=== PATIENT | female | born 1990 | race Caucasian/White ===

== ENCOUNTER 2025-04-29 19:03 | Emergency (ER) | payer OTHER, SELFPAY ==
--- OUTSIDE RECORDS SUMMARY | 2024-10-05 06:00 | XMS_ITS ---
Author Organization Paul Address [address] [place] [id number] Care Team Providers Care Supervisor Tan Room Name Role Phone Lacho White Primary Care Provider Allergies Allergen (clinical drug ingredient) Drug/Non Drug Allergy documented on EMR Reaction Allergy Type Onset Date Status cefaclor Cefaclor Unknown Drug Allergy Active cefprozil Cefprozil Unknown Drug Allergy Active REASON FOR VISIT yearly check up Medications Medication SIG (Take, Route, Frequency, Duration) Notes Start Date End Date Status Zoloft 100 MG 2 tablets Orally Onc e a day; Duration: 90 days Active Problems Problem Type SNOMED Code ICD Code Onset Dates Problem Status W/U Status Risk Notes Problem Posttraumatic stress disorder (65967963) PTSD (post-traum atic stress disorder) (F43.10) Active confirmed Vital Signs Blood pressure systolic 114 mm Hg 10/06/19 25 Blood pressure diastolic 62 mm Hg 025 Heart Rate 75 /min 10/05/2024 Height 62 in 10/05/2024 Weight 166 lbs 10/05/2024 BMI 30.36 kg/m2 10/05/2024 Encounters Encounter Location Date Provider Diagnosis [facility] [address] [facility] [phone] 10/05/2024 Lacho White PTSD (post-traumatic stress disorder) F43.10 Assessments Encounter Date Diagnosis (ICD Code) Assessment Notes Treatment Notes Treatment Clinical Notes Section Notes 10/05/2024 PTSD (post-traumatic stress disorder) (ICD-10 - F43.10) Plan Of Treatment Medication Medication Name Sig Start Date Stop Date Notes Zoloft 100 MG 2 tablets Orally Onc e a day; Duration: 90 days Next Appt Details Follow Up: 4 Weeks, Reason: Progress Notes * Delia EDWARDSDOB: [birth year] (35 yo F)Acc No.[id number]:10/05/2024 Progress Notes Patient: Delia STORY Provider: Alis White M.D. :1990 A ge:34 Y S ex:Female Date:10/05/2024 Address:[facility] Sch[id number] Subjective: * Chief Complaints: * 1 . Yearly check up. * HPI: P sychology: 34 year old female presents with c/o Anxiety P t here to f/u on anxiety with depression. Pt states she is currently taking Zoloft 100mg that is rx'd by Shy Hodge, MSN, CNM at [facility] in [place]. Pt states she feels like she may need a dose increase or a different meddication as she does not feel current is helping. Pt states she is taking it for PTSD and has continued with anxiety attacks. * ROS: D ERMATOLOGY: no R renetta. n o H tiffani. G ASTROENTEROLOGY: no N ausea. n o V omiting. U ROLOGY: no D ifficulty urinating. n o B lood in urine. * Medical History: P ostpartum Depression, Autism. * Surgical History: T onsillectomy 2002, ACL repair , Cadaver Graft 2011, Ear Tubes 1994,1996. * Hospitalization/Major Diagno stic Procedure: D enies Past Hospitalization. * Family History: F ather: alive, diabetes, hypertension. M other: alive, diabetes. P aternal Grand Father: , hypertension, skin cancer, dementia. P aternal Grand Mother: alive 82 yrs, diabetes, breast cancer. M aternal Grand Father: , hypertension, arthritis. M aternal Grand Mother: , type 2 diabetes. 2 brother(s) . 1 son(s) , 1 daughter(s) - healthy. . Uncle on father side passed fomr genetic cancer Brother diabetes type 2. * Social History: C affeine: yes, frequency: diet soda only a couple times a week. Alcohol: no. Past smoking status: never smoked. Tobacco use other than smoking: no. * Medications: T aking Zoloft 100 MG Tablet 1 tablet Orally Once a day , Discontinued Zoloft 50 MG Tablet 1 tab(s) orally once a day at night , Medication List reviewed and reconciled with the patient * Allergies: C efprozil, Cefaclor. Objective: * Vitals: W t: 166, Temp: 98.2, BP: 114/62, HR: 75, Nurse: curt, Ht: 62, BMI:30.36. * Examination: P sychology: General Appearance: N AD. G rooming : a dequate.?Eye contact : richa hernández. M ood : fallon barragan. Assessment: * Assessment: 1. P TSD (post-traumatic stress disorder) - F43.10 (Primary) Plan: * Treatment: * Procedure Codes: 3 074F SYST BP LT 130 MM HG, 3078F DIAST BP < 80 MM HG * Follow Up: 4 Weeks * Images: Billing Information: * Visit Code: 98450 Office Visit, Est Pt., Level 3. * Procedure Codes: 3074F SYST BP LT 130 MM HG. 3078F DIAST BP < 80 MM HG. * Electronic signature of Karla White MD on 04/29/2025 at 07:48 PM EDT Sign off status: Pending * Provider: Alis White M.D. Date: 0 10/05/2024 Generated for Archana delacruz/Sharif/Cynthiasmitting on: 1 07:48 PM EDT History and Physical Notes * HPI (History of Present Illness) Category Sub-Category Detail Notes Category Not es Psychology Anxiety Pt here to f/u o n anxiety with depression. Pt states she is currently taking Zoloft 100mg that is rx'd by Shy Hodeg, MSN, CNM at [facility] in [place]. Pt states she feels like she may need a dose increase or a different meddication as she does not feel current is helping. Pt states she is taking it for PTSD and has continued with anxiety attacks Examination Category Sub-Category Detail Notes Category Not es Psychology General Appearance: NAD Grooming : adequate Eye contact : normal Mood : pleasant
--- OUTSIDE RECORDS SUMMARY | 2024-11-16 06:00 | XMS_ITS ---
Author Organization [facility] Address [address] [place] [facility] [id number] Care Team Providers Care Six Pack Packer Name Role Phone Lacho White Primary Care Provider [phone] Allergies Allergen (clinical drug ingredient) Drug/Non Drug Allergy documented on EMR Reaction Allergy Type Onset Date Status cefaclor Cefaclor Unknown Drug Allergy Active cefprozil Cefprozil Unknown Drug Allergy Active REASON FOR VISIT 1 month Medications Medication SIG (Take, Route, Frequency, Duration) Notes Start Date End Date Status Zoloft 100 MG 2 tablets Orally Onc e a day Active QUEtiapine Fumarate 25 MG 1 or 2 tablets at bedtime Orally Once a day; Duration: 30 days 11/16/2024 Active Problems Problem Type SNOMED Code ICD Code Onset Dates Problem Status W/U Status Risk Notes Problem Insomnia (707880062) Insomnia, unspecified type (G47.00) Active confirmed Problem Body mass index 30+ - obesity (133126505) BMI 30.0-30.9,adult (Z68.30) Active confirmed Vital Signs Blood pressure systolic 110 mm Hg 11/17/19 25 Blood pressure diastolic 70 mm Hg 025 Heart Rate 77 /min 11/16/2024 Height 62 in 11/16/2024 Weight 168.4 lbs 11/16/2024 BMI 30.8 kg/m2 11/16/2024 Encounters Encounter Location Date Provider Diagnosis [facility] [address] [facility] [phone] 11/16/2024 Lacho White PTSD (post-traumatic stress disorder) F43.10 ; Insomnia, unspecified type G47.00 and BMI 30.0-30.9,adult Z68.30 Assessments Encounter Date Diagnosis (ICD Code) Assessment Notes Treatment Notes Treatment Clinical Notes Section Notes 11/16/2024 PTSD (post-traumatic stress disorder) (ICD-10 - F43.10) 11/16/2024 Insomnia, unspecified type (ICD-10 - G47.00) 11/16/2024 BMI 30.0-30.9,adult (ICD-10 - Z68.30) Plan Of Treatment Medication Medication Name Sig Start Date Stop Date Notes Zoloft 100 MG 2 tablets Orally Once a day QUEtiapine Fumarate 25 MG 1 or 2 tablets at bedtime Orally Once a day; Duration: 30 days 11/16/2024 Next Appt Details Follow Up: via phone to repo rt progress, Reason: Progress Notes * Delia EDWARDSDOB: [birth year] (35 yo F)Acc No.[id number]:11/16/2024 Progress Notes Patient: Delia STORY Provider: Alis White M.D. :1990 A ge:34 Y S ex:Female Date:11/16/2024 Address:[facility] [place] [address] Subjective: * Chief Complaints: * 1 . 1 month. * HPI: H PI: 34 year old female presents with c/o Here for follow up on:.? P sychology: c/o stress T he pt is here for a follow up on PTSD. Pt states the increase in Zoloft has helped with the Depression but she states the racing thoughts have gotten worse. * ROS: D ERMATOLOGY: no R renetta. n o H tiffani. G ASTROENTEROLOGY: no N ausea. n o V omiting. n o D iarrhea.? U ROLOGY: no D ifficulty urinating. n o B lood in urine. * Medical History: P ostpartum Depression, Autism. * Surgical History: T onsillectomy 2002, ACL repair , Cadaver Graft 2011, Ear Tubes 1994,1996. * Family History: F ather: alive, diabetes, [...] Medications: T aking Zoloft 100 MG Tablet 2 tablets Orally Once a day , Medication List reviewed and reconciled with the patient * Allergies: C efprozil, Cefaclor. Objective: * Vitals: W t: 168.4, Temp: 98.5, BP: 110/70, HR: 77, Nurse: GABE, Ht: 62, BMI:30.8. * Examination: P sychology: General Appearance: N AD. G rooming : a dequate.?Eye contact : richa hernández. M ood : fallon barragan. Assessment: * Assessment: 1. P TSD (post-traumatic stress disorder) - F43.10 (Primary) 2 . I nsomnia, unspecified type - G47.00 3 . B SD 30.0-30.9,adult - Z68.30 Plan: * Treatment: 2. I nsomnia, unspecified type Start QUEtiapine Fumarate Tablet, 25 MG, 1 or 2 tablets at bedtime, Orally, Once a day, 30 days, 45, Refills 0. * Procedure Codes: 3 074F SYST BP LT 130 MM HG, 3078F DIAST BP < 80 MM HG * Follow Up: v ia phone to report progress * Images: Billing Information: * Visit Code: 10286 Office Visit, Est Pt., Level 3. * Procedure Codes: 3074F SYST BP LT 130 MM HG. 3078F DIAST BP < 80 MM HG. * Electronic signature of Karla White MD on 04/29/2025 at 07:48 PM EDT Sign off status: Pending * Provider: Alis White M.D. Date: 11/16/2024 Generated for Archana delacruz/Sharif/eTransmitting on: 1 07:48 PM EDT History and Physical Notes * HPI (History of Present Illness) Category Sub-Category Detail Notes Category Not es Psychology stress The pt is here f or a follow up on PTSD. Pt states the increase in Zoloft has helped with the Depression but she states the racing thoughts have gotten worse HPI Here for follow up on: Examination Category Sub-Category Detail Notes Category Not es Psychology General Appearance: NAD Grooming : adequate Eye contact : normal Mood : pleasant
[2025-04-29] VITALS (13 sets, daily range): BP systolic 111–149; BP diastolic 76–102; PULSE 61–115; RESP 16–18; TEMP 36.8; O2SAT 100; BMI 25.7
--- NOTE | 2025-04-29 19:17 | PC.NURSE ---
1907- patient brought into triage to begin the triage process at this time. patient stated i don't know when i am supposed to tell you this but i am severely autistic and i have a thing about people touching me and i am requesting that i either receive something for anxiety or a sedative . this RN tried to explain to the patient that she was in a room called triage, this is just where we take a look at the chief complaint, and grab some vitals on her and ask some general questions. the patient then repeated again that i want a sedative or anxiety medication and refused to go any further until she received medication. Maria Del Carmen, dry pan charger was notified and came into triage. Maria Del Carmen explained that she was once again in triage, and we at the very least needed to see the laceration on her right foot in order to room her appropriately. patient stated that was fine but then became very tearful and stated she tends to kick and hit people when she gets extremely overstimulated and begins having her meltdowns . patient ultimately let staff remove her dressing in triage to assess the laceration and was ultimately moved to room 5. vitals were obtained in her treatment room, thus completing triage. Dr Juan BURNS at bedside and ordering anxiety medications for the patient. report given to Primary RN Christina at this time.
--- NOTE | 2025-04-29 19:26 | HMH.EDGENADL ---
Discharge Plan Disposition Patient Disposition: Home, Self-Care Condition: Good Prescriptions Prescriptions: New sulfamethoxazole-trimethoprim [Bactrim DS] 800-160 mg tablet 1 tab PO BID 7 Days Qty: 14 0RF Referrals Follow up/Referrals: Lacho White MD [Primary Care Provider, Medical] - See instructions Activity Restrictions/Add. Instructions Additional Instructions/Restrictions: Take the antibiotics as prescribed for 7 days. Put the bacitracin on the wound twice daily and clean the wound with soap and water. Keep the wound covered until you get the stitches out. They need to be removed in 7 to 10 days. Please see a healthcare provider if you see any signs of redness drainage severe swelling or significant pain. Try to avoid getting the wound dirty. Clinical Impressions Clinical Impression: Laceration Instructions Patient Instructions: DI for Laceration Repair Print Language Print Language: Kazakh Discharge ED Provider: Alexia Martinez General Adult HPI General Chief complaint: Wound/Laceration Stated complaint: AO 04-29 , right foot cut Time Seen by Provider: 04/29/25 19:06 Mode of Arrival: Ambulatory Source of Information: Patient Description of Symptoms (Recalled from ER Triage Doc. by RN): patient presents for a deep laceration to the top of her right foot. patient was outside when she stepped on a rake. History of Present Illness HPI narrative: Patient is a 35-year-old female with a past medical history of autism who presents to the emergency department with a laceration to the top of her right foot. Patient states that she was outside when she stepped on a rake. Patient does not have any significant pain. Patient denies any significant bleeding. Patient does not take any daily medications. Patient has no significant allergies. Patient states that her tetanus is updated. Related Data Previous Rx's ?Medication ?Instructions ?Recorded sulfamethoxazole 800 1 tab PO BID 7 days #14 tabs 04/29/25 mg-trimethoprim 160 mg tablet (Bactrim DS) Allergies Allergy/AdvReac Type Severity Reaction Status Date / Time Cephalosporins AdvReac Rash Verified 04/29/25 19:25 mivacurium (From Mivacron) AdvReac Rash Verified 04/29/25 19:25 [facility] Disclaimer: The information contained in this section may have been updated after the patient was seen, as this information can be updated by other users. Social History Smoking Status: Never smoker alcohol intake: never current occupational status: other Travel in the last 8 weeks?: None ROS Obtained: Yes All systems reviewed & no additional complaints except as documented and Yes Systems reviewed as appropriate & no additional complaints except as documented Physical Exam General General appearance: alert and in no apparent distress Head Head exam: atraumatic, normocephalic and normal inspection Eye Eye exam: Present normal appearance, PERRL and EOMI; Absent scleral icterus ENT ENT exam: Present normal exam and normal external ear exam Neck Neck exam: Present normal inspection and full ROM Chest Chest inspection: Present normal inspection and symmetric chest wall rise Respiratory Respiratory exam: Present normal lung sounds bilaterally; Absent respiratory distress or wheezes Cardiovascular Cardiovascular exam: Present regular rate, normal rhythm and normal heart sounds Abdominal Exam Abdominal exam: Present soft and distention; Absent tenderness, guarding or rebound Extremities Exam Extremities exam: Present normal inspection and full ROM Back Exam Back exam: Present normal inspection and full ROM Neurological Exam Neurological exam: Present alert, oriented X3 and other (Neurovascular intact on the right foot) Psychiatric Psychiatric exam: Present normal affect and normal mood Skin Skin exam: Present warm, dry and other (Centimeter laceration to the right foot, no active bleeding, superficial in nature, no exposed tendon or muscle) Medical Decision Making Medical Records Medical records reviewed: Yes I reviewed the patient's medical records. Screening: Per USPSTF and CDC recommendations, given the prevalence of disease in our region, it is our hospital?s policy to screen for HIV and viral Hepatitis for all patients aged 18 and over and those with ongoing risk factors. [place] Inquiry Pt receiving controlled substance: No Vital Signs: 04/29/25 19:08 04/29/25 19:25 04/29/25 19:30 Temperature 98.2 F Temperature Source Oral Pulse Rate 91 H 71 Pulse Rate [Right Radial] 115 H Respiratory Rate 18 Blood Pressure Blood Pressure [Right Arm] 149/102 H Blood Pressure Mean Blood Pressure Mean [Right Arm] 117 Blood Pressure Source Blood Pressure Source [Right Arm] Automatic Cuff Blood Pressure Position Blood Pressure Position [Right Arm] Sitting 02 Sat by Pulse Oximetry 100 100 100 Oxygen Delivery Method 04/29/25 19:31 04/29/25 19:31 04/29/25 19:45 Temperature Temperature Source Pulse Rate 108 H 79 Pulse Rate [Right Radial] Respiratory Rate Blood Pressure 111/86 Blood Pressure [Right Arm] Blood Pressure Mean 94 Blood Pressure Mean [Right Arm] Blood Pressure Source Blood Pressure Source [Right Arm] Blood Pressure Position Blood Pressure Position [Right Arm] 02 Sat by Pulse Oximetry 100 100 Oxygen Delivery Method 04/29/25 20:00 04/29/25 20:00 04/29/25 20:15 Temperature Temperature Source Pulse Rate 74 76 Pulse Rate [Right Radial] Respiratory Rate Blood Pressure 116/76 Blood Pressure [Right Arm] Blood Pressure Mean 98 Blood Pressure Mean [Right Arm] Blood Pressure Source Blood Pressure Source [Right Arm] Blood Pressure Position Blood Pressure Position [Right Arm] 02 Sat by Pulse Oximetry 100 100 Oxygen Delivery Method 04/29/25 20:30 04/29/25 20:30 04/29/25 20:45 Temperature Temperature Source Pulse Rate 72 61 Pulse Rate [Right Radial] Respiratory Rate Blood Pressure 127/99 H Blood Pressure [Right Arm] Blood Pressure Mean 108 Blood Pressure Mean [Right Arm] Blood Pressure Source Blood Pressure Source [Right Arm] Blood Pressure Position Blood Pressure Position [Right Arm] 02 Sat by Pulse Oximetry 100 100 Oxygen Delivery Method 04/29/25 20:59 04/29/25 21:00 04/29/25 21:01 Temperature Temperature Source Pulse Rate 85 88 Pulse Rate [Right Radial] Respiratory Rate Blood Pressure 119/83 Blood Pressure [Right Arm] Blood Pressure Mean 95 Blood Pressure Mean [Right Arm] Blood Pressure Source Blood Pressure Source [Right Arm] Blood Pressure Position Blood Pressure Position [Right Arm] 02 Sat by Pulse Oximetry 100 100 Oxygen Delivery Method 04/29/25 21:06 Temperature 98.2 F Temperature Source Pulse Rate 88 Pulse Rate [Right Radial] Respiratory Rate 16 Blood Pressure 119/83 Blood Pressure [Right Arm] Blood Pressure Mean Blood Pressure Mean [Right Arm] Blood Pressure Source Automatic Cuff Blood Pressure Source [Right Arm] Blood Pressure Position Sitting Blood Pressure Position [Right Arm] 02 Sat by Pulse Oximetry Oxygen Delivery Method Room Air Lab Data Lab results reviewed: Yes I reviewed the patient's lab results. Orders (Tests/Meds): ED MEDICATIONS Discontinued Medications Generic Name Dose Route Start Last Admin Trade Name Freq PRN Reason Stop Dose Admin Bacitracin 1 gm 04/29/25 20:47 04/29/25 20:56 Bacitracin Zinc Oint 30gm Tube TP 04/29/25 20:48 1 gm ONCE ONE Administration Cocaine HCl 1 ml 04/29/25 19:19 04/29/25 19:32 Cocaine 4% Topical Soln 4ml Bottle TP 04/29/25 19:20 1 ml ONCE ONE Administration Epinephrine HCl 1 mg 04/29/25 19:19 04/29/25 19:32 Epinephrine 1 Mg/Ml Ampul TP 04/29/25 19:20 1 mg ONCE ONE Administration Lidocaine HCl 1 ml 04/29/25 19:19 04/29/25 19:32 Lidocaine 2% Urojet 10ml TP 04/29/25 19:20 1 ml ONCE ONE Administration Midazolam HCl 5 mg 04/29/25 19:32 04/29/25 19:36 Midazolam 5mg/Ml 1ml Vial IM 04/29/25 19:33 5 mg ONCE ONE Administration Trimethoprim/Sulfamethoxazole 1 each 04/29/25 20:48 04/29/25 20:56 Sulfa/Trimethoprim 1 Tablet PO 04/29/25 20:49 1 each ONCE ONE Administration Medical Decision Narrative: Patient is a 35-year-old female with severe autism who presents to the emergency department with a laceration to her right foot. On arrival, patient was hemodynamically stable with unremarkable vital signs. Differential includes but not limited to: Laceration, foreign body, vascular injury, tendon injury, amongst others. On exam, patient had a 3 cm laceration to the right medial aspect of the right foot. There is no active bleeding, patient was neurovascularly intact no motor or sensory loss. Low concern for tendon or vascular injury. Patient's laceration was very superficial low concern for foreign body. Patient had no tenderness, low concern for fracture. Patient's wound was extensively irrigated. Given patient's severe autism she was given Versed to tolerate the procedure and topical lidocaine was placed. Patient's wound was repaired with nonabsorbable stitches. Patient was given a dose of antibiotics in the emergency department and sent home with antibiotics given the location of the wound. Patient was given wound care instructions and patient was otherwise discharged home in stable condition. Patient was advised to keep the wound covered until stitches were removed and to avoid getting the wound dirty. Procedures Laceration Laceration 1: Site: foot Side (If applicable): right Size (cm): 3 Description: linear and clean Depth: simple, single layer Local Anesthetic: lidocaine 1% Amount of anesthesia used (mL): 10 Pre-repair: wound explored Skin layer closed with: other (ethilon) Size (cm): 4-0 Number of sutures: 7 Technique: simple, interrupted Critical Care Critical Care Time Critical Care Time: No
[2025-04-29] MEDS: LIDOCAINE 2% UROJET 10ML TP (19:32)
[2025-04-29] MEDS: COCAINE 4% TOPICAL SOLN 4ML BOTTLE 1 ML TP (19:32)
[2025-04-29] MEDS: MIDAZOLAM 5MG/ML 1ML VIAL 5 MG IM (19:36)
--- OUTSIDE RECORDS SUMMARY | 2025-04-29 19:48 | XMS_ITS | Patient Health Record ---
Author Organization [facility] Address [address] [place] [phone] Care Team Providers Care Horn Player Name Role Phone Lacho White Primary Care Provider Allergies Allergen (clinical drug ingredient) Drug/Non Drug Allergy documented on EMR Reaction Allergy Type Onset Date Status cefaclor Cefaclor Unknown Drug Allergy Active cefprozil Cefprozil Unknown Drug Allergy Active Reason For Referral No Information Medications Medication SIG (Take, Route, Frequency, Duration) Notes Start Date End Date Status Sertraline HCl 100 MG TAKE 2 TABLETS BY MOUTH EVERY DAY FOR 90 DAYS; Duration: 90 Active QUEtiapine Fumarate 25 MG TAKE 1 OR 2 TA BLETS AT BEDTIME ORALLY ONCE A DAY 30 DAYS; Duration: 90 Active Immunizations Vaccine Route Administration Date Status Comme nts COVID 19 Moderna Unknown 11/25/2021 Administered Problems Problem Type SNOMED Code ICD Code Onset Dates Problem Status W/U Status Risk Notes Problem Body mass index 30+ - obesity (087017840) BMI 30.0-30.9,adult (Z68.30) Active confirmed Problem Insomnia (928308750) Insomnia, unspecified type (G47.00) Active confirmed Problem Posttraumatic stress disorder (80270919) PTSD (post-traumatic stress disorder) (F43.10) Active confirmed Vital Signs Heart Rate 77 /min 11/16/2024 Blood pressure diastolic 70 mm Hg 11/16/2024 Height 62 in 11/16/2024 Blood pressure systolic 110 mm Hg 11/16/2024 Weight 168.4 lbs 11/16/2024 BMI 30.8 kg/m2 11/16/2024 Encounters Encounter Location Date Provider Diagnosis [facility] [address] [place] [phone] 10/05/2024 Lacho White PTSD (post-traumatic stress disorder) F43.10 [facility] [address] [facility] [address] [place] [facility] [id number] 11/16/2024 Lacho White PTSD (post-traumatic stress disorder) F43.10 ; Insomnia, unspecified type G47.00 and BMI 30.0-30.9,adult Z68.30 Assessments Encounter Date Diagnosis (ICD Code) Assessment Notes Treatment Notes Treatment Clinical Notes Section Notes 11/16/2024 Insomnia, unspecified type (ICD-10 - G47.00) 11/16/2024 PTSD (post-traumatic stress disorder) (ICD-10 - F43.10) 10/05/2024 PTSD (post-traumatic stress disorder) (ICD-10 - F43.10) 11/16/2024 BMI 30.0-30.9,adult (ICD-10 - Z68.30) Plan Of Treatment No Information Insurance Providers Payer Name Payer Address Payer Phone Subscriber Number Group Number Insured Name Patient Relationship to Insured Coverage Start Date Coverage End Date [employer] [address] [id number] [place] [address] 1107 [id number] Delia Edwards Self - patient is the insured Medical (General) History Medical History History ICD Code Depression Autism Surgical History Surgery Date(Month/Year) Tonsillectomy 2002 ACL repair Cadaver Graft 2011 Ear Tubes 1994,1996 Hospitalization History Reason Date(Month/Year)
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
--- OUTSIDE RECORDS SUMMARY | 2025-04-29 19:48 | XMS_ITS | Encounter Summary ---
Author Organization [facility] Address [address] [place] [address] Care Team Providers Care Wharf Tally Clerk Name Role Phone Jack Hodge APRN, CNM Unavailable + [phone] Jack Hodge APRN, CNM Primary Care Provid er Mychart, Generic Provider Unavailable Colleen Shea MD Unavailable [phone] Dolores Taylor APRN, CNM Unavailable + Alex Subramanian RN Unavailable Unavailable Ginna Hall Unavailable Unavailable Keyanna Man MD Unavailable [phone] Encounter Details Date Type Department Care Team (Late st Contact Info) Description 10/15/[address] [facility] Physicians - Primary Care, [address] Office [address] [place] [phone] Jack Hodge APRN, CNM [address] [place] [address]. [address] [place] [address] Social History Tobacco Use Types Packs/Day Years Used Date Smoking Tobacco: Never Smokeless Tobacco: Never Alcohol Use Standard Drinks/Week Comments Yes 0 [...] Date Recorded PHQ-9 Auto Total 0 10/23/2020 Marty Depression Scale Answer Date Recorded Marty Depression Scale Total 1 05/31/2021 The thought of harming myself has occurred to me . Never 05/31/2021 Comments No Sex and Gender Information Value Date Recorded Sex Assigned at Not on file Legal Sex Female 11:17 AM EST Gender Identity Not on file Sexual Orientation Not on file documented as of this encounter Functional Status * Are you blind or do you have difficulty seeing, even when wearing glasses? Answer Date of Assessment Author No 05/29/2021 8:18 PM Nguyen German RN * Do you have serious difficulty walking or climbing stairs? Answer Date of Assessment Author No 05/29/2021 8:18 PM Nguyen German RN * Do you have difficulty dressing or bathing? Answer Date of Assessment Author No 05/29/2021 8:18 PM Nguyen German RN * Because of a physical, mental, or emotional condition, do you have difficulty doing errands alone such as a visiting a doctor's office or shopping? Answer Date of Assessment Author No 05/29/2021 8:18 PM Nguyen German RN documented as of this encounter Mental Status * Because of a physical, mental, or emotional condition, do you have serious difficulty concentrating, remembering, or making decisions? Answer Entry Date Author No 05/29/2021 8:18 PM Nguyen German RN documented in this encounter Plan of Treatment Not on file documented as of this encounter Visit Diagnoses Not on filedocumented in this encounter Additional Health Concerns Assessment Noted Time PHQ-9 Depression Total Score: 1 10/24/19 21 1:30 PM EDT documented as of this encounter Care Teams Wharf Tally Clerk Relationship Specialty Start Date End Date Jack Hodge, BRENDA, SHERWINM [address] [place] [address] [address] [place] [address] PCP - General Certified Nurse Clinical Transformation Specialist 10/17/20 Jack Hodge APRN, SHERWINM [address] [facility]. [address] [place] [address] Clinical Transformation Specialist Certified Nurse Clinical Transformation Specialist 08/24/20 Annat, Generic Provider 10/17/20 Colleen Martinez MD [address] [facility] [address] [place] [address] Resident Family Medicine 10/23/20 Dolores Taylor APRN, VIDHI [address] [facility] [address] [place] [phone] Clinical Transformation Specialist Certified Nurse Clinical Transformation Specialist 12/05/20 Alex Subramanian, RN Registered Nurse 01/24/21 Ginna Hall [place] Occupational Therapist Occupational Therapy 04/12/21 Keyanna Man MD [address] [place] [address] [address] [place] [address] Family Medicine 05/29/21 documented as of this encounter
--- OUTSIDE RECORDS SUMMARY | 2025-04-29 19:48 | XMS_ITS | Clinical Summary ---
Author Organization [facility] Address [address] [place] [address] Care Team Providers Care Creative Arts Music Therapist Name Role Phone Jack Hodge CNM Primary Care Provider [phone] Source Comments This information has been disclosed to you from confidential records protectedfrom disclosure by state law. You shall make no further disclosure of thisinformation without the specific, written, and informed release of theindividual to whom it pertains, or as otherwise permitted by law. A generalauthorization for the release of medical or other information is not sufficientfor the purposes of therelease of HIV test results or diagnoses. [id number] Social History Tobacco Use Types Packs/Day Years Used Date Smoking Tobacco: Never Assessed Comments Unknown Sex and Gender Information Value Date Recorded Sex Assigned at Not on file Legal Sex Female 8:06 AM EDT Gender Identity Not on file Sexual Orientation Not on file Plan of Treatment Not on file Care Teams Creative Arts Music Therapist Relationship Specialty Start Date End Date Jack Hodge CNM [address] [place] [address] PCP - General Family Medicine 11/19/20
[2025-04-29] MEDS: SULFA/TRIMETHOPRIM 1 TABLET 1 EACH PO (20:56)
[2025-04-29] MEDS: BACITRACIN ZINC OINT 30GM TUBE TP (20:56)
--- OUTSIDE RECORDS SUMMARY | 2099-07-05 19:59 | XMS_ITS | Continuity of Care Document ---
Author Organization [facility] Address [address] [place] [address] Phone Care Team Providers Care Rock Crushing Machine Operator Name Role Phone Neto Moncada Unavailable Unavailable Allergies, Adverse Reactions, Alerts Substance Reaction Status Criticality No Known Allergies Active No Inform ation Procedures Procedure Date Individual Therapy 53+ Min - TeleHealth Individual Therapy 16-37 Min Telephonic Individual Therapy 53+ Min - TeleHealth Clinical Assessment As per patient privacy policy some of the clinical information may not be visible. Advance Directives Directive Yes / No Effective Date File Name No Information Encounters Encounter Description Practice Location Reason(s) For Visit Diagnoses Date Provider Providers Copied on Encounter [facility], [address] [facility] [address], [id number], tel:[phone] Auto-Gener ated No Information 9 Coral Duque. [address] [place], [place], [id number]. tel:[phone] [facility], [address] [facility] [address] [place], [id number], [place] tel:[phone] [place] Adjustment disorder with mixed anxiety and depressed mood Justyn Tobias. [address] [place], [place], [id number]. tel:[phone] Individual Therapy 53+ Min - TeleHealth [facility], [address] [facility] [address] [place], [id number], tel:[phone] [place] Adjustment disorder with mixed anxiety and depressed mood May-2 4 Presha Roseann. [address] [place], [place], [id number]. tel:[phone] Individual Therapy 16-37 Min Telephonic [facility], [address] [facility] [address], [id number], [place] tel:[phone] [place] Adjustment disorder with mixed anxiety and depressed mood May- 4 Presha Roseann. [address] [place] [address], [id number]. tel:[phone] [facility], [address] [facility] [address], [id number], [place] tel:[phone] [place] Adjustment disorder with mixed anxiety and depressed mood Apr-0 4 Presha Roseann. [address] [place], [place], [id number]. tel:[phone] Individual Therapy 53+ Min - TeleHealth [facility], [address] [facility] [address], [id number], [place] tel:[phone] [place] Adjustment disorder with mixed anxiety and depressed mood Sep-1 4 Presha Roseann. [address] [place] [address], [id number]. tel:[phone] [facility], [address] [place] [address], [id number], [place] tel:[phone] [place] Adjustment disorder with mixed anxiety and depressed mood Sep-0 4 Presha Roseann. [address] [place] [address], [id number]. tel:[phone] Clinical Assessment [facility], [address] [place] [address], [id number], [place] tel:[phone] [place] Adjustment disorder with mixed anxiety and depressed mood Feb- 4 Rashad Vasquez. [address] [place], [place], [id number]. tel:[phone] [facility], [address] [facility] [address] [place], [id number], [place] tel:[phone] [place] No Information Thanh Silva. [address] [facility], [place], [place], [id number]. tel:[phone] Family History Family Member Type Diagnosis Age At Onset Father Problem Substance abuse Father Problem Family history of depression Payers Payer name Insurance type Covered republican ID Authoriza tion(s) No Information Social History Type Description Quantity Date Captured Comments Sex Female Smoking Status No Information Sexual Orientation Straight or heterosexual Feb Chief Complaint And Reason For Visit No Information Reason For Referral Reason For Referral No Information History Of Present Illness Encounter Date Complaint History Of Prese nt Illness No Information Functional Status Date Functional Assessmen t No Information Instructions Date Instruction Additional Infor mation No Information Assessments Type Assessment Date No Information Patient Care Teams Name Effective Dates (start - stop) Status Members No Information
== END 2025-04-29 21:07 | disposition home or self-care (01) ==
PROVIDERS: Emergency Provider Student in an Organized Health Care Education/Training Program; PCP Family Medicine
DX: S91.311A Laceration without foreign body, right foot, initial encounter (principal); F84.0 Autistic disorder; W27.1XXA Contact with garden tool, initial encounter
CPT/HCPCS: 12002; 96372; 99283; 99284; J0169; J2250